=== PATIENT | female | born 1950 | race Caucasian/White ===

== ENCOUNTER 2017-07-20 05:21 | Inpatient (IN) | payer OTHER ==
[2017-07-08 13:43] LABS: URINE BILIRUBIN NEGATIVE (Negative); URINE BLOOD NEGATIVE (Negative); URINE COLOR YELLOW; URINE GLUCOSE-RANDOM* NEGATIVE (Negative); URINE KETONES NEGATIVE (Negative); URINE LEUKOCYTES-REFLEX NEGATIVE (Negative); URINE PROTEIN (DIPSTICK) TRACE (Negative); URINE UROBILINOGEN 0.2 E.U./dl (0.2-1.0)
[2017-07-08 13:46] LABS: HEMATOCRIT 40.6 % (37.0-47.0); HEMOGLOBIN 13.7 gm/dL (12.0-15.0); MCH 32.4 pg (26.0-34.0); MCHC 33.8 g/dL (28.0-37.0); RBC 4.24 mil/uL (4.20-5.00); RDW 13.6 % (10.5-14.5); WBC 6.1 thou/uL (4.0-11.0)
[2017-07-08 13:59] LABS: PROTIME 9.7 Seconds (9.3-11.4)
[2017-07-08 14:15] LABS: ALBUMIN 4.1 g/dL (3.4-5.0); CALCIUM 9.2 mg/dL (8.5-10.1); CREATININE 0.8 mg/dL (0.6-1.0)
[2017-07-20] VITALS (8 sets, daily range): BP systolic 126–143; BP diastolic 59–76
[~2017-07-20] VITALS: Ht 167.6 cm; Wt 80.3 kg
--- NOTE | ~2017-07-20 | O ---
[facility] [place] [address] OPERATIVE REPORT Name: ALICIA ROE Room #: 416-P ADM IN M.R.#: [id number] Admission: 07/20/17 Attend Phys: Trey Chinchilla MD Discharge: Date of : 54 Report #: [id number] THIS REPORT FOR: //name// CC: Scott Chinchilla DATE OF SERVICE: 07/20/2017 PREOPERATIVE DIAGNOSIS: End-stage degenerative arthritis, right knee with valgus malalignment. POSTOPERATIVE DIAGNOSIS: End-stage degenerative arthritis, right knee with valgus malalignment. PROCEDURE: Right total knee arthroplasty. SURGEON: Trey Chinchilla MD INDICATIONS: This 66-year-old female has had moderate degenerative arthritis in both knees. She underwent left total knee replacement in the past with good result. She had a childhood right femur fracture leaving her with slight valgus malalignment, this has progressed with time and now she has moderate valgus malalignment and significant degenerative changes at the right knee. We discussed treatment options and elected to go ahead with total knee replacement. DESCRIPTION OF PROCEDURE: The patient was taken to the operating room where she was placed under general anesthesia. Prophylactic intravenous antibiotics were administered. The right knee and leg were meticulously prepped and draped and a thigh tourniquet inflated to 300 mmHg. An anterior longitudinal skin incision was made and carried through the medial retinaculum and the patella was reflected laterally. Rather marked degenerative change in all 3 compartments was noted. The De Paz and [employer] knee system was utilized and intramedullary guides were used on both the femur and the tibia. The femur was cut in 5 degrees of valgus and sized appropriately to a size 3 Jailene II femoral component. A trial component was placed and seemed to fit nicely. Attention was then directed to the tibia. An intramedullary guide was used there as well. The tibia was cut perpendicular to the long axis of the bone. A size 3 tibial component seemed to fit nicely. A trial reduction was performed and initially the lateral capsule was still rather tight making alignment difficult. The lateral capsule and iliotibial band was fenestrated lightly and manipulated and stretched to allow some improvement in valgus alignment. Once this had been accomplished, an 11 mm tibial insert seemed to fit nicely and this resulted in good stability in both flexion and extension with full knee extension and flexion beyond 130 degrees. The patellar surface was resected and a 32 mm patellar button seemed to fit nicely. Appropriate anchor holes were created. The patella was inserted and seemed to track nicely through a full arc of [address] [address] OPERATIVE REPORT Name: ALICIA ROE Room #: 416-P [facility] IN M.R.#: [id number] Admission: 07/20/17 Attend Phys: Trey Chinchilla MD Discharge: Date of : 54 Report #: [id number] motion. At this point, the trial components were removed. The surfaces were thoroughly irrigated and dried. The intramedullary canal was blocked with a bone block on both the femoral and tibial sides. Methyl methacrylate cement was mixed and injected into the porous surface of the tibia. The De Paz and Nephew size 3 Jailene II nonporous tibial base plate was then inserted. This seated nicely and appeared to be secure. Excess cement was removed from around its margin. A #11 mm Legion high flexion articular insert was then placed. It was inserted and snapped into position, it was felt to be stable and seated nicely. The size 3 right femoral component was then impacted on to the distal femur. A small amount of cement was used at the distal anchor holes. The femoral component seated nicely and appeared to be secure. A 32 mm patellar button was inserted with cement and it seated nicely and appeared to be secure. The knee was copiously irrigated. All excess fluid was evacuated from the knee. Good hemostasis was established. Total tourniquet time was approximately 65 minutes. A single Hemovac was left in the wound exiting through a separate stab incision. The fascia was then closed with multiple #1 Vicryl sutures. The subcutaneous tissues were closed with 0 Monocryl. The skin was closed with skin daria. A sterile dressing was applied. The patient was awakened and returned to recovery room in good condition. <ELECTRONICALLY SIGNED> By: Trey Chinchilla MD 07/21/17 0730 [id number] Trey Chinchilla MD /nt
--- NOTE | ~2017-07-20 | D ---
[facility] [place] [address] DISCHARGE SUMMARY Name: ALICIA ROE Room #: 416-P [facility] IN M.R.#: [id number] Admission: 07/20/17 Attend Phys: Trey Chinchilla MD Discharge: 07/23/17 Date of : 54 Report #: [id number] THIS REPORT FOR: //name// CC: Scott Chinchilla DATE OF SERVICE: 07/23/2017 FINAL DIAGNOSIS: End-stage degenerative arthritis, right knee. OPERATIONS AND PROCEDURES: Right total knee arthroplasty. SURGEON: Dr. Trey Chinchilla. HISTORY OF PRESENT ILLNESS: This active, fit 66-year-old female has had problems with progressive bilateral knee arthritis. She underwent left total knee replacement a number of years ago with good result. She has had progressive valgus malalignment of the right knee with progressive discomfort. She has elected to go ahead with right total knee arthroplasty at this point. HOSPITAL COURSE: The patient was admitted and taken to the operating room on 07/20/2017. She underwent right total knee arthroplasty which she tolerated quite nicely. Postoperatively, her course was largely unremarkable. She quickly advanced to a regular diet. She advanced from IV analgesics to oral analgesics. She was started on anticoagulation using Xarelto. She made good progress with therapy and was gradually able to resume independent ambulation. Her pain seems to be well controlled on oral Percocet and she is tapering down to hydrocodone at the time of discharge. She seems safe and independent. We will plan for discharge on 07/23/2017. DISCHARGE MEDICATIONS: Include multivitamin 1 q. day, calcium carbonate one b.i.d., Claritin 1 q. day, potassium gluconate 99 mg q. day, Ambien 10 mg at bedtime p.r.n., Xarelto 10 mg daily, hydrocodone 5/325 one q. 4 hours p.r.n. for pain. DISCHARGE INSTRUCTIONS: She will have some visiting home therapy for ambulation and extremity strengthening. I have asked her to call me if there should be any problems or questions. We will plan to see her back in the office at about 2 weeks postoperatively for suture removal. <ELECTRONICALLY SIGNED> By: Trey Chinchilla MD 07/28/17 0801 [id number] Trey Chinchilla MD /nt
[~2017-07-20 05:21] MED LIST: AMBIEN 10 MG TA10 MG PO; CALCIUM 600 +1 EAC1 PO; CENTRUM SILVER1 EAC4 PO; CLARITIN-D 12 H1 TA1 PO; IBUPROFEN 200200 M1 PO; PAROXETINE HCL10 MG PO; PIROXICAM10 MG PO; POTASSIUM99 M1 PO; VITAMIN E400 UNI2 PO
[2017-07-21 03:38] VITALS: BP 128/42
[2017-07-21 06:44] LABS: HEMATOCRIT 32.6 % (37.0-47.0); HEMOGLOBIN 11.3 gm/dL (12.0-15.0); MCH 33.7 pg (26.0-34.0); MCHC 34.7 g/dL (28.0-37.0); MCV 97.2 fL (80.0-100.0); RBC 3.35 mil/uL (4.20-5.00); RDW 13.7 % (10.5-14.5); WBC 9.1 thou/uL (4.0-11.0)
[2017-07-21 07:42] VITALS: BP 141/60
[2017-07-21 08:05] LABS: CALCIUM 8.5 mg/dL (8.5-10.1); CREATININE 0.6 mg/dL (0.6-1.0); POTASSIUM 4.6 mmol/L (3.5-5.1)
[2017-07-21 14:18] VITALS: BP 148/72
[2017-07-21 14:20] VITALS: BP 164/74; BP 164/743
[2017-07-21 14:22] VITALS: BP 165/79
[2017-07-21 20:06] VITALS: BP 144/67
[2017-07-22 04:15] VITALS: BP 148/59
[2017-07-22 06:22] LABS: HEMATOCRIT 27.2 % (37.0-47.0); HEMOGLOBIN 9.5 gm/dL (12.0-15.0); MCH 33.7 pg (26.0-34.0); MCHC 34.9 g/dL (28.0-37.0); MCV 96.4 fL (80.0-100.0); RBC 2.82 mil/uL (4.20-5.00); RDW 13.6 % (10.5-14.5); WBC 7.9 thou/uL (4.0-11.0)
[2017-07-22 07:55] VITALS: BP 157/79
[2017-07-22 12:55] VITALS: BP 157/79
[2017-07-22 16:00] VITALS: BP 144/80
[2017-07-22 20:45] VITALS: BP 147/59
[2017-07-23 03:35] VITALS: BP 149/65
[2017-07-23 06:28] LABS: HEMATOCRIT 27.4 % (37.0-47.0); HEMOGLOBIN 9.6 gm/dL (12.0-15.0); MCH 33.8 pg (26.0-34.0); MCV 96.7 fL (80.0-100.0); RBC 2.83 mil/uL (4.20-5.00); RDW 13.6 % (10.5-14.5); WBC 6.8 thou/uL (4.0-11.0)
[2017-07-23 08:45] VITALS: BP 147/79
[2017-07-23 11:49] VITALS: BP 157/79
[2017-07-23 11:55] VITALS: BP 157/79
== END 2017-07-23 13:19 | disposition home health service (06) | DRG 470 ==
LOC: 4N 05:21 → TBA 05:21 → PRE 08:13 → 4N 13:37 → PRE 15:55 → ENTRNSPT 07-23 12:25 → EDTRNSPTSTS 07-23 12:26 → 4N 07-23 13:19
PROVIDERS: Orthopaedic Surgery
PROC: 0SRC0J9 Replacement of Right Knee Joint with Synthetic Substitute, Cemented, Open Approach (ICD-10-PCS; principal; 2017-07-20)
DX: M17.11 Unilateral primary osteoarthritis, right knee (principal); R11.0 Nausea; J30.2 Other seasonal allergic rhinitis; Z96.641 Presence of right artificial hip joint; Z96.642 Presence of left artificial hip joint; Z90.49 Acquired absence of other specified parts of digestive tract; Z87.81 Personal history of (healed) traumatic fracture; Z88.5 Allergy status to narcotic agent; Z88.8 Allergy status to other drugs, medicaments and biological substances
CPT/HCPCS: 10790; 50010; 50101; 50415; 50954; 51130; 51225; 51412; 51771; 53000; 53365; 56525; 62110; 62850; 70005